=== PATIENT | female | born 1945 | race Caucasian/White ===

== ENCOUNTER → 2017-06-18 | Outpatient (CLI) | payer OTHER ==
--- NOTE | 2017-06-18 15:49 | RAD ---
Ultrasound right breast Indication: Abnormality seen on the screening and diagnostic mammogram Comparison: Same day diagnostic mammogram. Technique: Grayscale and color Doppler ultrasound images of the right breast. Findings: There is a hypoechoic round mass measuring 0.9 x 0.7 x 0.8 cm with indistinct margins and posterior shadowing in the right breast at 12:00 position which corresponds to previously seen abnormality on the diagnostic and screening mammogram. The mass is taller than wider on some images. No vascularity appreciated in this mass. Impression: Right central breast mass as described above. BI-RADS 4: Suspicious findings. Biopsy recommended. Findings were discussed with the patient and Dr. Barron's nurse ([place]) on 06/18/2017 at 2:50 PM.
--- NOTE | 2017-06-19 16:01 | RAD ---
DATE: 06/18/2017 EXAM: DIGITAL DIAGNOSTIC RT HISTORY: Abnormality seen on outside screening mammogram. Family history of breast cancer. COMPARISON: Outside study from 05/23/2017 This study was interpreted with the benefit of Computerized Aided Detection (CAD ). FINDINGS: Breast Density: SCATTERED The breast parenchyma shows scattered fibroglandular densities. Breast parenchyma level B. The spot compression images of the right breast demonstrates round mass with irregular margins in the center of the breast measuring 9 mm and approximately 5 cm from the nipple on cc view.. No associated suspicious calcifications. This mass corresponds to previously seen abnormality on the outside mammogram. IMPRESSION: Right central breast mass as described above BI-RADS CATEGORY: 0 INCOMPLETE: NEED ADDITIONAL IMAGING EVAULATION AND/OR PRIOR MAMMOGRAMS FOR COMPARISON RECOMMENDED FOLLOW-UP: PQRS compliance statement: Patient information was entered into a reminder system with a target due date for the next mammogram. Mammography is a sensitive method for finding small breast cancers, but it does not detect them all and is not a substitute for careful clinical examination. A negative mammogram does not negate a clinically suspicious finding and should not result in delay in biopsying a clinically suspicious abnormality. "Our facility is accredited by the [employer] Mammography Program." [facility]
== END | disposition home or self-care (01) ==
LOC: MAMMO 13:02
PROVIDERS: ATTEND Family Medicine
DX: N63.10 Unspecified lump in the right breast, unspecified quadrant (principal); Z80.3 Family history of malignant neoplasm of breast
CPT/HCPCS: 76641; G0206; 77065